=== PATIENT | female | born 1955 | race Caucasian/White ===

== ENCOUNTER 2017-05-06 08:49 | Emergency (ER) | payer OTHER ==
[2017-05-06 08:57] VITALS: BP 148/82; PULSE 75; TEMP 98.3; BMI 23.8
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
== END 2017-05-06 09:40 | disposition home or self-care (01) ==
LOC: JERFT 08:49
DX: S39.012A Strain of muscle, fascia and tendon of lower back, initial encounter (principal); W51.XXXA Accidental striking against or bumped into by another person, initial encounter; Y93.F9 Activity, other caregiving; Y92.238 Other place in hospital as the place of occurrence of the external cause; Y99.0 Civilian activity done for income or pay
CPT/HCPCS: 99281-25

== ENCOUNTER 2019-01-16 02:40 | Emergency (ER) | payer OTHER ==
[2019-01-16] MEDS ORDERED: IBUPROFEN 600 MG TABLET (FP) PO ONE ×2 (03:04→03:43)
--- NOTE | 2019-01-16 03:11 | PDOC ---
Attending Attestation - Resident Resident Name: Manolo Frank - ED Attending Attestation I have performed the following: I have examined & evaluated the patient, The case was reviewed & discussed with the resident, I agree w/resident's findings & plan - HPI HPI: 01/16/19 03:09 see resident hpi - Physicial Exam PE: 01/16/19 03:09 agree with resident exam - Medical Decision Making 01/16/19 03:10 63 yo female with right knee anf left arm pain post all plan for x rays knee, elbow d/c with ortho follow up
--- NOTE | 2019-01-16 03:17 | PDOC ---
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 She states she slipped and twisted her knee and fell against an cart with her left elbow. Denies hitting her head, neck. Denies headache, chest pain, abdominal pain, back pain. Denies LOC. Past History - Past Medical History Allergies/Adverse Reactions: Allergies Allergy/AdvReac Type Severity Reaction Status Date / Time No Known Allergies Allergy Verified 05/06/17 08:57 Home Medications: Ambulatory Orders NK [No Known Home Medication] 05/06/17 COPD: No Thyroid Disease: Yes - Immunization History Td Vaccination: (unknown) Immunization Up to Date: Yes - Psycho Social/Smoking Cessation Hx Smoking Status: Yes Smoking History: Never smoked Years of Tobacco Use: 10 Number of Cigarettes Smoked Daily: 10 Cigars Per Day: 0 Hx Alcohol Use: Yes (SOCIAL) Substance Use Type: None Review of Systems - Review of Systems Able to Perform ROS?: Yes Comments:: 01/16/19 03:10 GENERAL/CONSTITUTIONAL: No fever or chills. No weakness. HEAD, EYES, EARS, NOSE AND THROAT: No change in vision. No sore throat. CARDIOVASCULAR: No chest pain or shortness of breath RESPIRATORY: No cough, wheezing, or hemoptysis. GASTROINTESTINAL: No nausea, vomiting, diarrhea or constipation. GENITOURINARY: No dysuria, frequency, or change in urination. MUSCULOSKELETAL: +L elbow and R knee pain. No neck or back pain. SKIN: No rash NEUROLOGIC: No headache, vertigo, loss of consciousness, or change in strength/ sensation. ALLERGIC/IMMUNOLOGIC: No hives or skin allergy. *Physical Exam - Physical Exam Comments: 01/16/19 03:11 GENERAL: Awake, alert, and fully oriented, in no acute distress HEAD: No signs of trauma, normocephalic, atraumatic EYES: PERRLA, EOMI, sclera anicteric, conjunctiva clear NECK: Normal ROM, no midline tenderness R Knee: Point tender along joint at anterolateral aspect, stable, distal pulses and sensation intact L elbow: Tender with erythema suggestive of new hematoma developing, nontender along humerus, ulna/radius. EXTREMITIES: Normal inspection, Normal range of motion, no edema. No clubbing or cyanosis. NEUROLOGICAL: Cranial nerves II through XII grossly intact. Normal speech, no focal sensorimotor deficits SKIN: Warm, Dry, normal turgor, no rashes or lesions noted. ED Treatment Course - RADIOLOGY Radiology Studies Ordered: Category Date Time Status ELBOW-LEFT [RAD] Stat Radiology 01/16/19 03:04 Ordered KNEE 3 POS-RIGHT [RAD] Stat Radiology 01/16/19 03:04 Ordered Medical Decision Making - Medical Decision Making 01/16/19 03:17 Patient is a 63F here today with knee pain and elbow pain after fall. Vitals normal and stable. No sign of neck or head trauma. No signs of blunt trauma. Will evaluate with x-rays, likely discharge with immobilizer and crutches, then ortho follow up. 01/16/19 03:49 X-rays show no acute fracture or dislocation. Patient ambulating with pain, will give crutches. Discharge - Discharge Information Problems reviewed: Yes Clinical Impression/Diagnosis: Knee pain, Elbow pain, Fall Condition: Good Disposition: HOME - Admission No - Follow up/Referral Referrals: Neela Frias MD [Primary Care Provider] - Daniel Elam DO [Staff Physician] - - Patient Discharge Instructions Patient Printed Discharge Instructions: DI for Knee Pain Additional Instructions: Please call Dr Elam below for further follow up. Please return if you have any new, worsening or concerning symptoms. - Post Discharge Activity
[2019-01-16 04:01] VITALS: BP 130/80; TEMP 98.3; BMI 20.3
[2019-01-16 04:14] VITALS: PULSE 97
== END 2019-01-16 04:28 | disposition home or self-care (01) ==
LOC: JER 02:40
DX: M25.522 Pain in left elbow (principal); M25.562 Pain in left knee; W18.39XA Other fall on same level, initial encounter; Y93.89 Activity, other specified; Y92.239 Unspecified place in hospital as the place of occurrence of the external cause; Y99.0 Civilian activity done for income or pay; F17.210 Nicotine dependence, cigarettes, uncomplicated; E07.9 Disorder of thyroid, unspecified
CPT/HCPCS: 73070-TC-LT-FY; 73562-TC-RT-FY; 99282-25